=== PATIENT | female | born 1995 | race Caucasian/White ===

== ENCOUNTER 2022-07-11 10:44 | Inpatient (IN) | payer BC ==
[2022-07-11] VITALS (18 sets, daily range): BP systolic 124–159; BP diastolic 67–93; PULSE 51–125; TEMP 97.9–98.6
[~2022-07-11] VITALS: Ht 157.5 cm; Wt 76.4 kg
--- NOTE | 2022-07-11 11:00 | NUR ---
PT AMBULATORY TO UNIT FOR INDUCTION OF LABOR AFTER HTN AT THE CLINIC [facility] TODAY. ADMISSION BP 136/83. PT DENIES CTX, DENIES BLEEDING, DENIES LEAKING OF FLUID, DENIES DECREASED MOVEMENT. VITALS OBTAINED AND CONSENT FORMS SIGNED. ALL QUESTIONS ANSWERED.
[2022-07-11] MEDS ORDERED: PRENATAL TABLET PO (11:11)
--- NOTE | 2022-07-11 11:45 | NUR ---
DR. QUEEN AT BEDSIDE TO DISCUSS OPTIONS OF CYTOTEC VS PITOCIN INDUCTION. SVE: 1.5CM AND THICK PER DR. QUEEN. CYTOTEC INDCUTION RECCOMENDED. PT IN AGREEMENT WITH PLAN OF CARE.
[2022-07-11 12:14] LABS: COLLECTION METHOD CLEAN CATCH
[2022-07-11 12:18] LABS: BASO % 0.2 % (0.0-2.0); EOS # 0.1 K/mm3 (0.0-0.7); EOS % 0.8 % (0.0-4.0); GRAN % 69.1 % (42.2-75.2); HEMOGLOBIN 11.1 g/dl (12.5-16.0); LYMPH # 2.2 K/mm3 (1.2-3.4); LYMPH % 24.9 % (20.0-51.0); MEAN CELL VOLUME 87 fl (80.0-100.0); MEAN CORPUSCULAR HEMOGLOBIN 28 pg (27-31); MEAN CORPUSCULAR HGB CONC 32 g/dl (33.0-37.0); MEAN PLATELET VOLUME 12.3 fl (7.4-10.4); MONO # 0.4 K/mm3 (0.1-0.6); MONO % 4.7 % (1.7-9.3); PLATELET COUNT 225 K/mm3 (130-400); RED BLOOD COUNT 3.94 M/mm3 (4.10-5.30); REDCELL DISTRIBUTION WIDTH-CV 13.4 % (11.5-14.5)
[2022-07-11 12:19] LABS: HEMATOCRIT 34.3 % (37.0-47.0)
[2022-07-11 12:20] LABS: MUCOUS Present (NOT PRESENT); SQUAMOUS EPITHELIAL 0-2 /hpf (0-10); URINE BACTERIA Rare /hpf (NONE SEEN); URINE RBC 0-2 /hpf (0-2)
[2022-07-11 12:34] LABS: PH 6.5 (5.0-8.5); URINE APPEARANCE Clear (CLEAR/HAZY); URINE BLOOD Negative (NEGATIVE); URINE COLOR Yellow (YELLOW); URINE GLUCOSE Negative (NEGATIVE); URINE KETONE Negative (NEGATIVE); URINE NITRATE Negative (NEGATIVE); URINE PROTEIN(semi-quant) Negative (NEGATIVE); URINE UROBILINOGEN 0.2 E.U/dL (0.2-1.0)
[2022-07-11 12:38] LABS: ALBUMIN 2.7 gm/dL (3.5-5.0); BILIRUBIN,TOTAL 0.3 mg/dL (0.2-1.2); CALCIUM 8.7 mg/dL (8.4-10.2); CREATININE, serum 0.69 mg/dL (0.57-1.11); POTASSIUM 3.8 mmol/L (3.5-4.5)
--- NOTE | 2022-07-11 16:30 | NUR ---
DR. QUEEN AT BEDSIDE. SVE 1-2CM AND THICK, BUT NOTES CERVIX IS SOFTER. CYTOTEC DOSE REPEATED.
--- NOTE | 2022-07-11 18:30 | NUR ---
PT RESTING IN BED, APPEARS UNCOMFORTABLE. REQUESTING TO SIT ON PEANUT BALL AND AMBULATE IN ROOM. AT BEDSIDE. BLOOD PRESSURE OUT OF NORMAL LIMITS, MEDICATION PROVIDED AT THIS TIME BY THIS RN. INSTRUCTED PT TO REMAIN IN BED FOR 20 MINUTES UNTIL BLOOD PRESSURE COMES DOWN AND THEN BEDSIDE PEANUT BALL FOR MOVEMENT. PT DINNER PLATE AT BEDSIDE, EATEN 100%. ICE WATER AT BEDSIDE AND CALL LIGHT WITHIN REACH. WILL CONTINUE TO MONITOR BLOOD PRESSURE, ALL VS AND MONITORS. ASSESSMENT COMPLETED.
--- NOTE | 2022-07-11 20:35 | NUR ---
PER MD ORDER, MONITORS REMOVED AND PT UP TO SHOWER. STEADY GAIT, AT BEDSIDE FOR ASSISTANCE WITH PT WHILE AMBULATING IN ROOM.
--- NOTE | 2022-07-11 22:20 | NUR ---
CYTOTEC HELD DUE TO CTX PATTERN. WILL UPDATE MD.
[2022-07-12] VITALS (84 sets, daily range): BP systolic 98–179; BP diastolic 48–96; PULSE 52–86; TEMP 97.6–98.7
--- NOTE | 2022-07-12 | NUR ---
HELD PITOCIN START DUE TO CTX PATTERN. T CAT 1. PT AMBULATING IN ROOM; STEADY GAIT. WILL CONTINUE TO MONITOR.
--- NOTE | 2022-07-12 11:35 | NUR ---
DR. QUEEN AT BEDSIDE. SVE: . BLOODY SHOW NOTED.
--- NOTE | 2022-07-12 17:50 | NUR ---
DR. QUEEN AT BEDSIDE TO ASSESS PROGRESS PUSHING. RISK AND BENEFITS OF SECTION DISCUSSED.
--- NOTE | 2022-07-12 18:30 | NUR ---
UPON SHIFT CHANGE, PT PUSHING WITH RN AT BEDSIDE. DR. QUEEN AT BEDSIDE TO ASSESS PUSHING AND SPEAKING TO FAMILY ABOUT C/S DUE TO ARREST OF DESCENT. PT STATES SHE IS EXHAUSTED AND AGREES TO C/S. C/S CALLED AT 1830 AND PITOCIN TURNED OFF. ABDOMINAL PREP DONE AT 1835 AND ALL QUESTIONS ANSWERED AT THE BEDSIDE BY BOTH THIS RN AND DR QUEEN. BLOOD PRESSURES DISCUSSED WITH MD AT THE BEDSIDE. ANESTHESIA AT BEDSIDE AT 1840 FOR DOSING AND TO ANSWER QUESTIONS ABOUT C/S EPIDURAL AND PAIN CONTROL. OUT OF LABOR ROOM ON BED AT 1853 TO O.R.
--- NOTE | 2022-07-12 19:13 | NUR ---
DELIVERY OF LIVE BABY BOY AT 1913 VIA NON-EMERGENT PRIMARY C/S DUE TO ARREST OF DESCENT.
--- NOTE | 2022-07-12 21:00 | NUR ---
PT STABLE FOR TRANSPORT. ALL VSS, FUNDUS FIRM AND LOCHIA WNL WITH SMALL CLOT; CHARGE NURSE, AMMON WALKER, VERIFIED BLEEDING. PT ALERT AND HOLDING WITH AT BEDSIDE. NO COMPLAINTS OF PAIN OR N/V. PACU RECOVERY OVER AT 2100. THIS RN TO CONTINUE CARE ON PP UNIT.
[2022-07-12] MEDS ORDERED: MOTRIN 800800 MG/TAB PO (21:04)
[2022-07-12] MEDS ORDERED: PERCOCET 325 MG1 TA2 PO (21:04)
[2022-07-13] VITALS: BP 126/75; PULSE 55
[2022-07-13 01:00] VITALS: BP 126/66; PULSE 61
[2022-07-13 07:45] VITALS: BP 124/65; PULSE 59; TEMP 98
--- NOTE | 2022-07-13 13:13 | NUR ---
Initial visit; Parents and family thanked Co Founder for offering congratulations and God's blessings for the of their baby boy. Co Founder thanked family for visiting and mom and dad for choosing our hospital. They stated they have had a wonderful experience here at our hospital.
[2022-07-13 17:00] VITALS: BP 122/72; PULSE 77; TEMP 98
[2022-07-13 20:00] VITALS: BP 111/73; PULSE 69; TEMP 98
[2022-07-14 04:00] VITALS: BP 125/68; PULSE 65; TEMP 97.8
[2022-07-14 08:00] VITALS: BP 122/81; PULSE 72; TEMP 98.1
--- NOTE | 2022-07-14 11:30 | NUR ---
PATIENT UP TO RESTROOM, BAY REMOVED AND PERICARE COMPLETED. INT WRAPPED AND PATIENT IN SHOWER. EDUCATED ON HOW TO REMOVE DRESSING. INCISION CHECKED AFTER SHOWER AND IS APPROXIMATED AND NO DRAINAGE
[2022-07-14 16:53] VITALS: BP 126/78; PULSE 89; TEMP 98.2
[2022-07-14 20:00] VITALS: BP 133/80; PULSE 83; TEMP 98
[2022-07-15 07:31] VITALS: BP 124/82; PULSE 76; TEMP 97.9
== END 2022-07-15 11:05 | disposition home or self-care (01) | DRG 788 ==
LOC: LDR 10:44 → OB 10:44
PROVIDERS: ADMIT Obstetrics & Gynecology
PROC: 10D00Z1 Extraction of Products of Conception, Low, Open Approach (ICD-10-PCS; principal; 2022-07-12)
DX: O13.4 Gestational [pregnancy-induced] hypertension without significant proteinuria, complicating childbirth (principal); O99.824 Streptococcus B carrier state complicating childbirth; Z3A.39 39 weeks gestation of pregnancy; Z37.0 Single live birth; O69.81X0 Labor and delivery complicated by cord around neck, without compression, not applicable or unspecified; N90.89 Other specified noninflammatory disorders of vulva and perineum; O99.892 Other specified diseases and conditions complicating childbirth; O75.89 Other specified complications of labor and delivery; Z88.2 Allergy status to sulfonamides; Z90.89 Acquired absence of other organs
CPT/HCPCS: J0595; J0690; J1100; J1885; J2210; J2370; J2405; J2540; J2590; J2795; J3010; J7120